=== PATIENT | male | born 1995 | race Caucasian/White ===

== ENCOUNTER 2016-09-11 13:59 | Emergency (ER) | payer SELFPAY ==
[~2016-09-11] VITALS: Ht 172.7 cm; Wt 86.2 kg
[2016-09-11 15:09] LABS: BASOPHILS # (AUTO) 0.1 10^3/uL (0.0-0.1); BASOPHILS % (AUTO) 1 % (0-10); EOSINOPHILS # (AUTO) 0.9 10^3/uL (0.0-0.3); EOSINOPHILS % (AUTO) 7 % (0-10); LYMPHOCYTES # (AUTO) 2.5 X 10^3 (1.0-4.0); LYMPHOCYTES % (AUTO) 19 % (12-44); MEAN CORPUSCULAR HEMOGLOBIN 31 PG (25-34); MEAN CORPUSCULAR HGB CONC 35 G/DL (32-36); MEAN CORPUSCULAR VOLUME 89 FL (80-99); MEAN PLATELET VOLUME 8.9 FL (7.4-10.4); MONOCYTES # (AUTO) 1.3 X 10^3 (0.0-1.0); MONOCYTES % (AUTO) 10 % (0-12); NEUTROPHILS # (AUTO) 8.4 X 10^3 (1.8-7.8); NEUTROPHILS % (AUTO) 63 % (42-75); PLATELET COUNT 285 10^3/uL (130-400); RED BLOOD COUNT 5.18 10^6/uL (4.35-5.85); WHITE BLOOD COUNT 13.3 10^3/uL (4.3-11.0)
--- NOTE | 2016-09-11 15:12 | ED Abdominal Pain ---
General Chief Complaint: Abdominal/GI Problems Stated Complaint: CHEST/BACK PAIN Nursing Triage Note: Pt c/o RUQ abd pain that started after eating breakfast this morning. Pt reports eating pizza for breakfast this morning. Sepsis Screen: No Definite Risk Source of Information: Patient, Family Exam Limitations: No Limitations History of Present Illness Time Seen By Provider: 15:08 Initial Comments This 21-year-old male presents with a complaint of right upper quadrant again this morning after eating pizza. The patient's pain is sharp in nature and radiates into the back with associated nausea. The patient's past medical history was essentially unremarkable. He has been using meth recently. Patient denies fever, headache, neck pain, cough, shortness of breath, palpitations or chest pain, dysuria frequency or diarrhea. Allergies and Home Medications Allergies Coded Allergies: No Known Drug Allergies (Unverified , 09/11/16) Home Medications No Active Prescriptions or Reported Meds Review of Systems Constitutional: No chills, No fever EENTM: No Ear Pain Respiratory: Denies Cough Cardiovascular: Denies Chest Pain Gastrointestinal: Abdominal Pain (right upper quadrant), Denies Diarrhea, Nausea, Denies Vomiting Musculoskeletal: back pain (the patient's vital quadrant pain radiates in the right shoulder blade area) Skin: No rash Psychiatric/Neurological: No Symptoms Reported Endocrine: No Symptoms Reported Hematologic/Lymphatic: No Symptoms Reported Past Ihlyvst-Hotwvu-Iouuto Hx Patient Social History Alcohol Use: Denies Use Recreational Drug Use: Yes (last used yesterday - uses regulary) Drug of Choice: meth Smoking Status: Current Everyday Smoker Type Used: Cigarettes Recent Foreign Travel: No Contact w/Someone Who Travel: No Recent Infectious Disease Expo: No Recent Hopitalizations: No Seasonal Allergies Seasonal Allergies: No Surgeries HX Surgeries: Yes (ear) Respiratory Hx Respiratory Disorders: Yes Respiratory Disorders: Asthma Cardiovascular Hx Cardiac Disorders: No Neurological Hx Neurological Disorders: No Reproductive System Hx Reproductive Disorders: No Genitourinary Hx Genitourinary Disorders: No Gastrointestinal Hx Gastrointestinal Disorders: No Musculoskeletal Hx Musculoskeletal Disorders: No Endocrine Hx Endocrine Disorders: No HEENT HX ENT Disorders: No Cancer Hx Cancer: No Psychosocial Hx Psychiatric Problems: No Integumentary HX Skin/Integumentary Disorder: No Blood Transfusions Hx Blood Disorders: No Reviewed Nursing Assessment Reviewed/Agree w Nursing PMH: Yes Physical Exam Vital Signs VS - Last 72 Hours, by Label 09/11/16 14:38 Temp 96.8 Pulse 90 Resp 18 B/P (MAP) 115/82 Pulse Ox 99 O2 Delivery Room Air Capillary Refill : Less Than 3 Seconds General Appearance: WD/WN, moderate distress HEENT: PERRL/EOMI, normal ENT inspection Neck: non-tender, full range of motion, supple Respiratory: chest non-tender, lungs clear, normal breath sounds Cardiovascular: normal peripheral pulses, regular rate, rhythm Gastrointestinal: normal bowel sounds, non tender, soft Extremities: normal range of motion, non-tender, normal inspection Back: normal inspection Neurologic/Psychiatric: no motor/sensory deficits, alert, normal mood/affect Skin: normal color, warm/dry Progress/Results/Core Measures Results/Orders Lab Results Laboratory Tests Test 09/11/16 14:55 Range/Units White Blood Count 13.3 H 4.3-11.0 10^3/uL Red Blood Count 5.18 4.35-5.85 10^6/uL Hemoglobin 16.1 13.3-17.7 G/DL Hematocrit 46 40-54 % Mean Corpuscular Volume 89 80-99 FL Mean Corpuscular Hemoglobin 31 25-34 PG Mean Corpuscular Hemoglobin Concent 35 32-36 G/DL Red Cell Distribution Width 13.0 10.0-14.5 % Platelet Count 285 130-400 10^3/uL Mean Platelet Volume 8.9 7.4-10.4 FL Neutrophils (%) (Auto) 63 42-75 % Lymphocytes (%) (Auto) 19 12-44 % Monocytes (%) (Auto) 10 0-12 % Eosinophils (%) (Auto) 7 0-10 % Basophils (%) (Auto) 1 0-10 % Neutrophils # (Auto) 8.4 H 1.8-7.8 X 10^3 Lymphocytes # (Auto) 2.5 1.0-4.0 X 10^3 Monocytes # (Auto) 1.3 H 0.0-1.0 X 10^3 Eosinophils # (Auto) 0.9 H 0.0-0.3 10^3/uL Basophils # (Auto) 0.1 0.0-0.1 10^3/uL Sodium Level 140 135-145 MMOL/L Potassium Level 3.9 3.6-5.0 MMOL/L Chloride Level 102 98-107 MMOL/L Carbon Dioxide Level 30 21-32 MMOL/L Anion Gap 8 5-14 MMOL/L Blood Urea Nitrogen 14 7-18 MG/DL Creatinine 1.09 0.60-1.30 MG/DL Estimat Glomerular Filtration Rate > 60 BUN/Creatinine Ratio 13 Glucose Level 144 H 70-105 MG/DL Calcium Level 9.6 8.5-10.1 MG/DL Total Bilirubin 0.6 0.1-1.0 MG/DL Aspartate Amino Transf (AST/SGOT) 14 5-34 U/L Alanine Aminotransferase (ALT/SGPT) 8 0-55 U/L Alkaline Phosphatase 41 40-136 U/L Total Protein 7.1 6.4-8.2 G/DL Albumin 4.3 3.2-4.5 G/DL Lipase 23 8-78 U/L My Orders Orders - BENJAMIN FARFAN MD Gallbladder [id number] (09/11/16 15:05) Fentanyl Injection (Sublimaze Injection (09/11/16 15:15) Promethazine Injection (Phenergan Injec (09/11/16 15:15) Diphenhydramine Injection (Benadryl Inje (09/11/16 15:15) Medications Given in ED Current Medications Medications Dose Ordered Sig/Pavan Route Start Time Stop Time Status Last Admin Dose Admin Diphenhydramine HCl 25 mg ONCE ONCE IM 09/11/16 15:15 09/11/16 15:16 DC 09/11/16 15:17 25 MG Fentanyl Citrate 50 mcg ONCE ONCE IVP 09/11/16 15:15 09/11/16 15:16 DC 09/11/16 15:17 50 MCG Promethazine HCl 25 mg ONCE ONCE IVP 09/11/16 15:15 09/11/16 15:16 DC 09/11/16 15:17 25 MG Vital Signs/I&O Vital Sign - Last 12Hours 09/11/16 14:38 Temp 96.8 Pulse 90 Resp 18 B/P (MAP) 115/82 Pulse Ox 99 O2 Delivery Room Air Blood Pressure Mean: 93 Progress Note : Time: 15:45 Progress Note The patient's laboratory evaluation injury leukocytosis. May patient's bilirubin liver enzymes and lipase were not significantly elevated. Ultrasound demonstrated multiple stones in the gallbladder. Treatment course consisted of IV fluids, Zofran, and fentanyl IV. The patient' s pain was significantly improved. Departure Impression Impression: Primary Impression: Cholelithiasis and acute cholecystitis without obstruction Disposition: 01 HOME, SELF-CARE Condition: Improved Departure-Patient Inst. Decision time for Depature: 15:46 Referrals: [facility],LOCAL PHYSICIAN (PCP) Primary Care Physician Patient Instructions: Acute Abdomen (Belly Pain), Adult (DC) Add. Discharge Instructions: Follow-up closely with [facility] tomorrow for evaluation of cholecystitis. Hydrocodone for pain. Zofran for nausea. Clear liquids for the next 24-72 hours. Return if any acute problems or questions All discharge instructions reviewed with patient and/or family. Voiced understanding. Scripts No Active Prescriptions or Reported Meds BENJAMIN FARFAN MD Sep 11, 2016 15:12
[2016-09-11] MEDS ORDERED: diphenhydrAMINE 50 MG/ML INJ (BENADRYL) IM ONE (15:15)
[2016-09-11] MEDS ORDERED: PROMETHAZINE INJ 25 MG/ML (PHENERGAN) AMP IVP ONE (15:15)
[2016-09-11] MEDS ORDERED: fentaNYL INJECTION 100 MCG/2 ML AMP IVP ONE (15:15)
[2016-09-11 15:31] LABS: ALANINE AMINOTRANSFERASE 8 U/L (0-55); ALBUMIN 4.3 G/DL (3.2-4.5); ANION GAP 8 MMOL/L (5-14); ASPARTATE AMINO TRANSFERASE 14 U/L (5-34); BILIRUBIN,TOTAL 0.6 MG/DL (0.1-1.0); BLOOD UREA NITROGEN 14 MG/DL (7-18); BUN/CREATININE RATIO 13; CALCIUM 9.6 MG/DL (8.5-10.1); CARBON DIOXIDE 30 MMOL/L (21-32); CHLORIDE 102 MMOL/L (98-107); CREATININE SERUM 1.09 MG/DL (0.60-1.30); GFR ESTIMATED > 60; GLUCOSE 144 MG/DL (70-105); LIPASE 23 U/L (8-78); POTASSIUM 3.9 MMOL/L (3.6-5.0); SODIUM 140 MMOL/L (135-145); TOTAL PROTEIN 7.1 G/DL (6.4-8.2)
[2016-09-11 15:52] VITALS: BP 115/82
--- NOTE | 2016-09-11 16:49 | Diagnostic Imaging Report ---
PROCEDURE: US gallbladder. TECHNIQUE: Multiple real-time grayscale images were obtained over the right upper quadrant in various projections. INDICATION: Abdominal pain. COMPARISON: There are no prior studies available for comparison. FINDINGS: There are multiple small gallstones within the gallbladder. Furthermore, the gallbladder wall does seem thickened, measuring 6 mm (normal 2-3 mm). There also appears to be a trace amount of pericholecystic fluid. The combination of these findings does suggest acute cholecystitis. The common bile duct is not dilated, measuring 5.3 mm. The liver is prominent but within normal limits. There is no focal mass involving the liver and the biliary tree is not abnormally dilated. The right kidney is unremarkable. The pancreas was not well visualized. IMPRESSION: 1. There are a number of small gallstones within the gallbladder. The gallbladder wall is also thickened and there is a trace amount of pericholecystic fluid. These findings are worrisome for acute cholecystitis. 2. If further imaging of the gallbladder for an acute abnormality is desired, the a nuclear medicine hepatobiliary scan would be recommended. 3. These results were discussed with Dr. Tang Lopez in the [facility], [place] at the time of this dictation. Dictated by: Dictated on workstation # [id number]
== END 2016-09-11 15:55 | disposition home or self-care (01) ==
LOC: EDUNIT# 13:59 → ER 14:01
DX: K80.10 Calculus of gallbladder with chronic cholecystitis without obstruction (principal); F17.210 Nicotine dependence, cigarettes, uncomplicated
CPT/HCPCS: 36415; 76705; 80053; 83690; 85025; 96374; 96375